=== PATIENT | female | born 1990 | race Caucasian/White ===

== ENCOUNTER 2023-07-21 00:36 | Inpatient (IN) | payer OTHER ==
[~2023-07-21] VITALS: Ht 170.2 cm; Wt 116.1 kg
[2023-07-21] MEDS ORDERED: ONDANSETRON 4 MG/2 ML VIAL IVP PRN (01:05)
[2023-07-21] MEDS ORDERED: CARBOPROST 250 MCG/ML AMP IM PRN (01:05)
[2023-07-21] MEDS ORDERED: METHYLERGONOVINE 0.2 MG/ML AMP IM PRN (01:05)
[2023-07-21 01:33] LABS: BASOPHILS % (AUTO) 0.4 % (0.0-2.0); EOSINOPHILS # (AUTO) 0.5 K/uL (0-0.4); LYMPHOCYTES # (AUTO) 2.3 K/uL (2.5-16.5); LYMPHOCYTES % (AUTO) 19.9 % (20.5-51.1); MEAN CORPUSCULAR HEMOGLOBIN 28 pg (27-31); MEAN CORPUSCULAR HGB CONC 33 g/dL (33-37); MEAN CORPUSCULAR VOLUME 83.8 fL (80-94); MONOCYTES # (AUTO) 0.7 K/uL (0.8-1.0); MONOCYTES % (AUTO) 5.7 % (1.7-9.3); NEUTROPHILS # (AUTO) 8.2 K/uL (1.8-7.7); PLATELET COUNT (AUTO) 275 K/uL (140-450); RED BLOOD CELL COUNT(AUTO) 3.58 MIL/uL (4.20-5.40); WHITE BLOOD COUNT (AUTO) 11.7 K/uL (4.8-10.8)
[2023-07-21 01:34] LABS: APPEARANCE,URINE CLEAR (CLEAR); BILIRUBIN,URINE NEGATIVE (NEGATIVE); BLOOD, URINE NEGATIVE (NEGATIVE); COLOR,URINE YELLOW (YELLOW); LEUKOCYTE ESTERASE ,URINE 1+ (NEGATIVE); NITRITE, URINE NEGATIVE (NEGATIVE); PROTEIN,URINE TRACE (NEGATIVE); UGLUCOSE NEGATIVE (NEGATIVE)
[2023-07-21 01:43] LABS: BACTERIA,URINE >30 (MANY) /HPF (None Seen); MUCUS,URINE 1+ /LPF (None Seen); RBC,URINE 0-5 /HPF (0-5); SQUAMOUS EPITHELIAL CELL,UR 4-10 (MOD) /LPF (0-3 (FEW))
[2023-07-21 01:56] LABS: INR 0.9 (0.8-1.2); PARTIAL THROMBOPLASTIN TIME 26.3 secs (22-35.6); PROTHROMBIN TIME 9.5 secs (10.8-13.4)
[2023-07-21 01:57] LABS: ALBUMIN 2.4 g/dL (3.4-5.0); ANION GAP 14.7 (8-16); CALCIUM 8.6 mg/dL (8.5-10.1); CARBON DIOXIDE 23.1 mmol/L (21-32); CREATININE 0.6 mg/dL (0.6-1.3); POTASSIUM 3.8 mmol/L (3.5-5.1); TOTAL BILIRUBIN 0.2 mg/dL (0.0-1.0); TOTAL PROTEIN, SERUM 6.7 g/dL (6.4-8.2)
[2023-07-21 02:00] VITALS: BP 126/77; PULSE 80; RESP 18; TEMP 97.9
[2023-07-21] MEDS ORDERED: MISOPROSTOL 25 MCG TAB ONE ×2 (02:24→09:09)
[2023-07-21] MEDS: LACTATED RINGERS 1,000 ML IV SCH ×3 (02:38→18:31)
[2023-07-21] MEDS ORDERED: OXYTOCIN 20 UNITS/LR PREMIX 1,000 ML IV ONE (10:14)
[2023-07-21] MEDS: MORPHINE SULFATE 10 MG/ML VIAL IVP PRN (14:26)
[2023-07-21] MEDS ORDERED: MISOPROSTOL 200 MCG TAB VG SCH (18:00)
[2023-07-21] MEDS ORDERED: ROPIVACAINE 0.2%/NS PREMIX 200 ML EPI ONE (18:15)
[2023-07-21] MEDS ORDERED: ROPIVACAINE 0.2%/NS PREMIX 100 ML EPI SCH (18:15)
[2023-07-22] MEDS: LACTATED RINGERS 1,000 ML IV SCH ×3 (01:23→16:03)
[2023-07-22] MEDS ORDERED: OXYTOCIN 20 UNITS/LR PREMIX 1,000 ML IV ONE ×2 (05:15→13:13)
[2023-07-22] MEDS ORDERED: ROPIVACAINE 0.2%/NS PREMIX 200 ML EPI ONE ×2 (07:02→14:19)
[2023-07-22 07:48] VITALS: BP 147/68; PULSE 87; RESP 18; O2SAT 96
[2023-07-22] MEDS: MORPHINE SULFATE 10 MG/ML VIAL IVP PRN (07:48)
[2023-07-22] MEDS ORDERED: fentaNYL citrate 0.05 MG/ML VIAL ONE (09:52)
[2023-07-22] MEDS ORDERED: OXYTOCIN 10 UNITS/ML VIAL IM PRN (20:05)
[2023-07-22] MEDS ORDERED: METHYLERGONOVINE 0.2 MG TAB PO PRN (20:05)
[2023-07-22] MEDS ORDERED: MEASLES, MUMPS, AND RUBELLA 1 VIAL SQVAC ONE (20:05)
[2023-07-22] MEDS ORDERED: METHYLERGONOVINE 0.2 MG/ML AMP IM PRN (20:05)
[2023-07-22] MEDS ORDERED: IBUPROFEN 800 MG TAB PO PRN (20:05)
[2023-07-22] MEDS ORDERED: BENZOCAINE/MENTHOL 20%-0.5% 60 GM CAN TP PRN (20:05)
[2023-07-22] MEDS ORDERED: SIMETHICONE 80 MG TAB.CHEW PO PRN (20:05)
[2023-07-22] MEDS ORDERED: bisacodyL 5 MG TABEC PO PRN (20:05)
[2023-07-23] MEDS: IBUPROFEN 600 MG TAB PO PRN ×2 (04:36→15:58)
[2023-07-23 08:32] LABS: HEMATOCRIT 26.2 % (36-48); HEMOGLOBIN 8.8 g/dL (12.0-16.0)
[2023-07-23] MEDS: DOCUSATE SODIUM 100 MG GELCAP PO PRN (09:37)
[2023-07-24] MEDS: IBUPROFEN 600 MG TAB PO PRN (00:51)
[2023-07-24] MEDS: DOCUSATE SODIUM 100 MG GELCAP PO PRN (02:18)
== END 2023-07-24 18:00 | disposition home or self-care (01) | DRG 560 ==
LOC: MLD 00:36 → MFCC 07-23 00:25
PROVIDERS: ADMIT Obstetrics & Gynecology; ATTEND Obstetrics & Gynecology
PROC: 10E0XZZ Delivery of Products of Conception, External Approach (ICD-10-PCS; principal; 2023-07-22)
PROC: 0KQM0ZZ Repair Perineum Muscle, Open Approach (ICD-10-PCS; 2023-07-22)
PROC: 3E0R3BZ Introduction of Anesthetic Agent into Spinal Canal, Percutaneous Approach (ICD-10-PCS; 2023-07-22)
PROC: 00HU33Z Insertion of Infusion Device into Spinal Canal, Percutaneous Approach (ICD-10-PCS; 2023-07-22)
DX: O13.4 Gestational [pregnancy-induced] hypertension without significant proteinuria, complicating childbirth (principal); Z37.0 Single live birth; R71.0 Precipitous drop in hematocrit; O69.81X0 Labor and delivery complicated by cord around neck, without compression, not applicable or unspecified; O70.1 Second degree perineal laceration during delivery; Z88.8 Allergy status to other drugs, medicaments and biological substances; R73.9 Hyperglycemia, unspecified; O75.89 Other specified complications of labor and delivery; Z91.040 Latex allergy status; Z3A.38 38 weeks gestation of pregnancy
CPT/HCPCS: 36415; 51702; 59409; 76815; 80053; 81001; 85018; 85025; 85610; 85730; 86592; 86886; 86900; 86901; 87086; J2270; J2405; J2590; J2795; J3010; Q0092